=== PATIENT | female | born 1960 | race Caucasian/White ===

== ENCOUNTER → 2022-02-13 | Outpatient (CLI) | payer OTHER ==
--- NOTE | 2022-02-13 14:10 | RAD ---
XR EXAM OF ANKLE_RIGHT 3VIEWS History: Ankle pain, twisted then stepped on by horse. Comparison: None. Findings: Osseous mineralization is normal. No acute fracture or dislocaton. The ankle mortise and talar dome a re intact. Small well-corticated ossific bodies at the medial and lateral malleolus are consistent wi th sequela of old injuries. Plantar calcaneal enthesophyte. No focal soft tissue swelling. Impression: 1. Mild degenerative/chronic posttraumatic changes of the right ankle without acute osseous abnormal ity. Electronically signed by: Noman Sinclair MD (02/13/2022 2:07 PM) [id number]
== END ==
LOC: RAD 13:01
PROVIDERS: ATTEND Nurse Practitioner Family
DX: S99.911A Unspecified injury of right ankle, initial encounter (principal); M77.31 Calcaneal spur, right foot; M19.171 Post-traumatic osteoarthritis, right ankle and foot; W55.19XA Other contact with horse, initial encounter; Y93.89 Activity, other specified; Y92.89 Other specified places as the place of occurrence of the external cause; Y99.8 Other external cause status
CPT/HCPCS: 73610